=== PATIENT | female | born 1985 | race American Indian/Alaskan Native ===

== ENCOUNTER 2017-02-17 13:22 | Emergency (ER) | payer OTHER ==
[2017-02-17 13:29] VITALS: BMI 30.7
[2017-02-17 13:30] VITALS: BP 122/77; PULSE 60; TEMP 98.1; O2SAT 100
--- NOTE | 2017-02-17 13:42 | C.PDOC ---
History Of Present Illness 31 yr old female presents to the ER with complaints of right hand pain and swelling since morning. Patient states the pain is localized over the thumb area , worse with thumb movement. Pt sts, " I usually sleep on my Right arm". Denies known direct trauma or injury, denies weakness, sensory or vascular deficits to Right hand, denies skin changes. Ambulate to ED for evaluation, appears in pain. Time Seen by Provider: 02/17/17 13:33 Chief Complaint (Nursing): Finger,Hand,&Wrist History Per: Patient History/Exam Limitations: no limitations Onset/Duration Of Symptoms: Sudden Onset (Since morning ) Past Medical History Reviewed: Historical Data, Nursing Documentation, Vital Signs Vital Signs: Last Vital Signs Temp 98.1 F 02/17/17 14:37 Pulse 60 02/17/17 14:37 Resp 18 02/17/17 14:37 BP 122/77 02/17/17 14:37 Pulse Ox 100 02/17/17 14:37 Family History: States: No Known Family Hx - Social History Hx Tobacco Use: Yes Hx Alcohol Use: Yes Hx Substance Use: No - Immunization History Hx Tetanus Toxoid Vaccination: No Hx Influenza Vaccination: No Hx Pneumococcal Vaccination: No Review Of Systems Except As Marked, All Systems Reviewed And Found Negative. Musculoskeletal: Positive for: Hand Pain (Right hand pain, localized over the thumb area. ). Negative for: Neck Pain, Shoulder Pain, Arm Pain Neurological: Negative for: Weakness, Numbness Physical Exam - Physical Exam Appears: Well, Non-toxic, No Acute Distress Skin: Warm, Dry, No Rash, No Ecchymosis Extremity: Capillary Refill (<2), No Deformity, Other (Right Hand: Mild tenderness, scant erythema over the thenar area and dorsal aspect hand overlying thumb area. AROM of thumb is mildly reduced due to pain. NO cellulitis, no neurovascular deficits distally noted.) Neurological/Psych: Oriented x3, Normal Speech, Normal Motor, Normal Sensation, Normal Reflexes ED Course And Treatment O2 Sat by Pulse Oximetry: 100 - Other Rad X-Ray - Right Hand X-Ray: Interpreted by Me, Viewed By Me Interpretation: (-) acute fx or dislocation Progress Note: On re-eval, pt is afebrile, hemodynamicaly stable. Non-toxic. Right hand: exam c/w thumb sprain r/o UCL strain. No weakness, no neurovascular deficist distally to pain. xray review and appears noraml. Splint applied. Pt advised. ref. to F/u with Ortho/hand specialsit in 2-3 days for re- eavluation. return to Ed if any worsening or new changes. Orthopedic Time Performed: 14:10 Time Out: Side verified, Site verified, Patient ID confirmed Procedure: Splint Type: Thumb spica Location: Right, Hand Consent obtained: Verbal Performed by: Mid-level Provider Diagnosis: Sprain Medical Decision Making Medical Decision Making: PLAN: * X-Ray - Right Hand * Tramadol PO Disposition Counseled Patient/Family Regarding: Studies Performed, Diagnosis, Need For Followup, Rx Given - Disposition Referrals: Yanick Workman MD [Staff Provider] - Disposition: HOME/ ROUTINE Disposition Time: 14:15 Condition: STABLE Additional Instructions: Splint Take medication as prescribed Follow up with Hand specialist in 2-3 days for re-evaluation. Return to Ed if any worsening or new changes. Prescriptions: Ibuprofen [Motrin Tab] 600 mg PO Q6 #20 tab traMADol [Ultram] 50 mg PO TID #7 tab Instructions: Skier's Thumb (ED), Finger Sprain (ED) Forms: Work Excuse - Clinical Impression Clinical Impression: Finger sprain - PA / [employer] / Resident Statement MD/DO has reviewed & agrees with the documentation as recorded. - Scribe Statement The provider has reviewed the documentation as recorded by the Scribe Barbara Ly All medical record entries made by the Scribe were at my direction and personally dictated by me. I have reviewed the chart and agree that the record accurately reflects my personal performance of the history, physical exam, medical decision making, and the department course for this patient. I have also personally directed, reviewed, and agree with the discharge instructions and disposition.
--- NOTE | 2017-02-17 14:13 | C.PDOC ---
Time Seen by Provider: 02/17/17 13:33 Chief Complaint (Nursing): Finger,Hand,&Wrist Past Medical History Vital Signs: Last Vital Signs Temp 98.1 F 02/17/17 13:29 Pulse 60 02/17/17 13:29 Resp 20 02/17/17 13:29 BP 122/77 02/17/17 13:29 Pulse Ox 100 02/17/17 13:45 Family History: States: No Known Family Hx - Social History Hx Tobacco Use: Yes Hx Alcohol Use: Yes Hx Substance Use: No - Immunization History Hx Tetanus Toxoid Vaccination: No Hx Influenza Vaccination: No Hx Pneumococcal Vaccination: No ED Course And Treatment O2 Sat by Pulse Oximetry: 100 - Other Rad X-Ray - Right Hand X-Ray: Interpreted by Me Interpretation: (-) acute fx or dislocation Progress Note: On re-eval, pt is afebrile, hemodynamicaly stable. Non-toxic. Right hand: exam c/w thumb sprain r/o UCL strain. No weakness, no neurovascular deficist distally to pain. xray review and appears noraml. Splint applied. Pt advised. ref. to F/u with Ortho/hand specialsit in 2-3 days for re- eavluation. return to Ed if any worsening or new changes. Orthopedic Time Performed: 14:08 Procedure: Splint Type: Thumb spica Location: Right Consent obtained: Verbal Performed by: Mid-level Provider Diagnosis: Sprain Disposition Counseled Patient/Family Regarding: Studies Performed, Diagnosis, Need For Followup, Rx Given - Disposition Referrals: Yanick Workman MD [Staff Provider] - Disposition: HOME/ ROUTINE Disposition Time: 14:13 Condition: STABLE Additional Instructions: Splint Take medication as prescribed Follow up with Hand specialist in 2-3 days for re-evaluation. Return to Ed if any worsening or new changes. Prescriptions: Ibuprofen [Motrin Tab] 600 mg PO Q6 #20 tab traMADol [Ultram] 50 mg PO TID #7 tab Instructions: Skier's Thumb (ED), Finger Sprain (ED) - Clinical Impression Clinical Impression: Finger sprain
[2017-02-17 14:38] VITALS: RESP 18
--- NOTE | 2017-02-17 15:04 | RAD ---
PROCEDURE: Right Hand Radiographs. HISTORY: pain COMPARISON: None available. FINDINGS: BONES: No acute displaced fracture. JOINTS: No dislocation. SOFT TISSUES: Unremarkable. No evidence of radiopaque foreign body. OTHER FINDINGS: None. IMPRESSION: No acute displaced fracture, dislocation, or significant joint effusion identified. If symptoms persist, or if there is continued clinical concern, x-ray follow-up in 7-10 days should be considered.
== END 2017-02-17 14:35 | disposition home or self-care (01) ==
LOC: C.ER 13:22
DX: S63.601A Unspecified sprain of right thumb, initial encounter (principal); X58.XXXA Exposure to other specified factors, initial encounter; Y93.9 Activity, unspecified; Y92.009 Unspecified place in unspecified non-institutional (private) residence as the place of occurrence of the external cause